=== PATIENT | female | born 1995 | race Caucasian/White ===

== ENCOUNTER 2025-04-30 09:40 | Emergency (ER) | payer OTHER ==
--- NOTE | 2025-04-30 09:43 | ERPHSYRPT ---
- History of Present Illness Time Seen by Provider: 04/30/25 09:43 Source: patient Exam Limitations: no limitations Physician History: This is a 29-year-old white female patient who presents to the emergency by private vehicle with a complaint of bilateral earaches with the right side worse than the left as well as a sore throat that has been present for a week. She has been using Tylenol and ibuprofen and the symptoms have not resolved. She has not measured a fever. She has a mild cough as well. She denies chest pain. She has had no nausea vomiting or diarrhea symptoms. She has no known drug allergies Timing/Duration: gradual onset, persistent Severity: mild Prearrival Treatment: over the counter meds Modifying Factors: Improves With: activity Associated Symptoms: ear pain (R), ear pain (L), cough, sore throat Allergies/Adverse Reactions: No Known Drug Allergies Allergy (Unverified 04/30/25 09:50) Travel Risk - International Travel Have you traveled outside of the country in past 3 weeks: No - Emerging Infectious Disease Are you exhibiting symptoms associated with any current EIDs: No - Review of Systems Constitutional: No Symptoms Eyes: No Symptoms Ears, Nose, & Throat: Ear Pain (Bilateral. Right side worse than left), Throat Pain Respiratory: Cough, No Dyspnea, No Wheezing Cardiac: No Symptoms Abdominal/Gastrointestinal: No Symptoms Genitourinary Symptoms: No Symptoms Musculoskeletal: No Symptoms Skin: No Symptoms Neurological: No Symptoms Psychological: No Symptoms Endocrine: No Symptoms Hematologic/Lymphatic: No Symptoms Immunological/Allergic: No Symptoms All Other Systems: Reviewed and Negative - Past Medical History Pertinent Past Medical History: No - Nursing Vital Signs Nursing Vital Signs: Initial Vital Signs Temperature 97 F 04/30/25 09:51 Pulse Rate 79 04/30/25 09:51 Respiratory Rate 18 04/30/25 09:51 Blood Pressure 127/82 04/30/25 09:51 O2 Sat by Pulse Oximetry 100 04/30/25 09:51 Pain Scale Pain Intensity 8 - Physical Exam General Appearance: no apparent distress, alert Eye Exam: bilateral eye: normal inspection, PERRL, EOMI Ear Exam: right ear: TM bulging, left ear: TM normal, bilateral ear: auricle normal, canal normal Nasal Exam: normal inspection Throat Exam: normal, pharynx normal, moist mucus membranes, No dental tenderness, No pharynx swelling, No tongue swollen, No uvula swelling Neck Exam: normal inspection, non-tender, supple, full range of motion, trachea midline Cardiovascular/Respiratory Exam: chest non-tender, no respiratory distress Abdominal Exam: non-tender Neurologic Exam: alert, oriented x 3, cooperative, plant breeder II-XII nml as tested, nml cerebellar function, nml station & gait, sensation nml Skin Exam: normal color, warm, dry SpO2 Interpretation: normal O2 Delivery: Room Air - Course Nursing assessment & vital signs reviewed: Yes - Progress Progress Note: 04/30/25 10:00 My medical decision making and the assignment of low complexity of this patient's medical issue today is based on review of the patient's past medical history, reviewed the patient's medication list, reviewed patient drug allergy list, history present illness and physical findings on examination. No radiographic or laboratory studies are necessary in the workup of this patient. Differential diagnosis includes was not limited to otitis media, otitis externa, pharyngitis Counseled pt/family regarding: lab results, diagnosis, need for follow-up, rad results Medical Desision Making - Diagnostic Testing Diagnostic test were ordered, analyzed, and reviewed by me: No - Risk of complications Low Risk: Low risk of morbidity from additional dx testing or treatment The pt has a mod risk of morbidity or mortality based on: Need for prescription drug management - Departure Departure Disposition: Home Clinical Impression: Right otitis media Condition: Critical Care Time: No Additional Instructions: Drink plenty of clear liquids before advancing your diet. Use Tylenol and ibupr ofen for pain and fever control. Take your antibiotics as prescribed. Call your primary care provider on 05/02/2025, to make arrangements for follow-up appointment for further evaluation and management. Prescriptions: Amoxicillin 500 mg Cap [Amoxil 500 mg] 500 mg PO TID #21 cap
[2025-04-30 09:51] VITALS: RESP 18; TEMP 97
[2025-04-30] MEDS ORDERED: AMOXIL 500 MG ONE (10:00)
[2025-04-30] MEDS: AMOXIL 500 MG PO ONE (10:01)
[2025-04-30 10:22] VITALS: BP 112/84; PULSE 89; O2SAT 99
== END 2025-04-30 10:22 | disposition home or self-care (01) ==
LOC: ED 09:40
DX: H66.91 Otitis media, unspecified, right ear (principal); H92.03 Otalgia, bilateral; J02.9 Acute pharyngitis, unspecified